=== PATIENT | female | born 1990 | race Caucasian/White ===

== ENCOUNTER 2018-09-10 13:31 | Emergency (ER) | payer SELFPAY ==
[~2018-09-10] VITALS: Ht 167.6 cm; Wt 62.9 kg
[~2018-09-10 13:31] MED LIST: HYDR1CAP18; NITR-53; PHEN95TA25; PREN1TAB12 PO
[2018-09-10 14:07] VITALS: BP 116/61; PULSE 78; RESP 20; Ht 167.6 cm; Wt 62.9 kg
[2018-09-10] MEDS ORDERED: CEPH-443 PO (17:27)
[2018-09-10] MEDS ORDERED: ACET500C5 PO (17:27)
--- NOTE | 2018-09-10 17:49 | ERD ---
ER Documentation Chief Complaint Chief Complaint Complains of vag bleed and 15 weeks HPI 28-year-old male patient with no significant past medical history presents to ED currently is a presents to the ED for vaginal bleeding that occurred yesterday. States that she has had to change for pads. Reports that she has some lower abdominal cramping. Reports that her SAUSAGE MACHINE OPERATOR is Dr. Suggs. States that her last menstruation was on May 23, 2019. Denies any nausea, vomiting, diarrhea, neck stiffness. ROS All systems reviewed and are negative except as per history of present illness. Medications Home Meds Active Scripts Acetaminophen* (Tylophen*) 500 Mg Capsule, 1 CAP PO Q6H PRN for PAIN AND OR ELEVATED TEMP, #20 CAP Prov:JEFF ESPINOZA PA-C 09/10/18 Cephalexin* (Keflex*) 500 Mg Capsule, 500 MG PO QID for 7 Days, CAP Prov:JEFF ESPINOZA PA-C 09/10/18 Reported Medications Vit/Fe Fumarate/Fa ( 1-1 Tablet) 1 Tab Tablet, 1 TAB PO DAILY, #1 01/29/12 Hydrocodone Bit/Acetaminophen (Dolacet 5/500 Capsule) 1 Cap Capsule 10/16/09 Nitrofurantoin Macrocrystal (Nitrofurantoin) 100 Mg Capsule 10/16/09 Phenazopyridine Hcl* (Azo Dine*) 95 Mg Tablet 10/16/09 Allergies Allergies: Coded Allergies: No Known Drug Allergy (Verified Allergy, Mild, 10/16/09) PMhx/Soc Medical and Surgical Hx: pt denies Medical Hx, pt denies Surgical Hx History of Surgery: No Hx Neurological Disorder: No Hx Respiratory Disorders: No Hx Cardiac Disorders: No Hx Miscellaneous Medical Probl: No Hx Alcohol Use: No Hx Substance Use: No Hx Tobacco Use: No Smoking Status: Never smoker FmHx Family History: No diabetes, No coronary disease Physical Exam Vitals Vital Signs Date Temp Pulse Resp B/P (MAP) Pulse Ox O2 O2 Flow FiO2 Time Delivery Rate 09/10/18 98.3 78 20 116/61 100 14:07 (79) Physical Exam Const: Xec-tix-[id number], well-nourished. In no acute distress. Head: Atraumatic, normocephalic Eyes: Normal Conjunctiva without injection. No purulent discharge. ENT: Normal external ear, nose. Moist oropharynx without tonsillar exudates. Non-erythematous pharynx. Uvula midline. No drooling. No trismus. Neck: No cervical midline tenderness. Full range of motion. No meningismus. No cervical lymphadenopathy. No JVD. Resp: Clear to auscultation bilaterally. No wheezing, rhonchi, rales, or crackles. No accessory muscle use. No retractions. Cardio: Regular rate and rhythm. No murmurs, rubs or gallops. Abd: Soft, nontender, non distended. Normal bowel sounds. No palpable masses. No rebound tenderness. No guarding. Negative McBurney's point. Negative psoas sign. Negative obturator sign. Skin: No petechiae or rashes Back: No midline tenderness. No CVA tenderness. Ext: No cyanosis, or edema. Neur: Awake and alert. Normal gait. Normal coordination. Psych: Normal Mood and Affect Results 24 hrs Laboratory Tests Test 09/10/18 15:36 White Blood Count 9.5 10^3/ul Red Blood Count 3.98 10^6/ul Hemoglobin 12.0 g/dl Hematocrit 36.1 % Mean Corpuscular Volume 90.7 fl Mean Corpuscular Hemoglobin 30.2 pg Mean Corpuscular Hemoglobin Concent 33.2 g/dl Red Cell Distribution Width 13.2 % Platelet Count 202 10^3/UL Mean Platelet Volume 10.4 fl Immature Granulocytes % 0.400 % Neutrophils % 74.9 % Lymphocytes % 19.0 % Monocytes % 4.8 % Eosinophils % 0.7 % Basophils % 0.2 % Nucleated Red Blood Cells % 0.0 /100WBC Immature Granulocytes # 0.040 10^3/ul Neutrophils # 7.1 10^3/ul Lymphocytes # 1.8 10^3/ul Monocytes # 0.5 10^3/ul Eosinophils # 0.1 10^3/ul Basophils # 0.0 10^3/ul Nucleated Red Blood Cells # 0.0 10^3/ul Urine Color RED Urine Clarity CLOUDY Urine pH 6.0 Urine Specific [place] 1.017 Urine Ketones NEGATIVE mg/dL Urine Nitrite NEGATIVE mg/dL Urine Bilirubin NEGATIVE mg/dL Urine Urobilinogen 1+ mg/dL Urine Leukocyte Esterase 3+ Leigh/ul Urine Microscopic RBC 3 /HPF Urine Microscopic WBC 13 /HPF Urine Squamous Epithelial Cells MANY /HPF Urine Bacteria FEW /HPF Urine Hemoglobin 3+ mg/dL Urine Glucose NEGATIVE mg/dL Urine Total Protein NEGATIVE mg/dl Beta HCG, Quantitative 00864.0 mIU/ml Procedures/MDM 28-year-old female patient with no significant past medical history presents to ED complaining of vaginal bleeding during her . Patient is afebrile and nontoxic-appearing. An ultrasound, beta-hCG, CBC, type and RH, UA was ordered to evaluate patient. CBC: No evidence of severe infection or anemia Urine: No elevation in nitrites, 3+ leukocyte esterase, 3+ hematuria Rh: A+ No indication for Rhogam at this time. beta Hc IMPRESSION: Single live intrauterine gestation of approximately 15 weeks and 4 days based on ultrasound measurements. Posterior placenta with a large complex fluid collection near the edge of the placenta, suspicious for an area of placental abruption. Close follow-up is recommended. Patient's bleeding symptoms have stabilized while in the department. Discussed with Dr. Suggs, patient's SAUSAGE MACHINE OPERATOR about the possible placenta abruption noted on the ultrasound, who stated that patient can follow-up with him on outpatient basis at his office at 10 AM tomorrow morning. Patient has a 15- week, 4-day IUP. Patient will also be treated for urinary tract infection. Pelvic rest recommended. Low suspicion for symptomatic anemia, ectopic , sepsis, PID, appendicitis, ovarian torsion, tubo-ovarian abscess, surgical abdomen, or other emergent conditions. Patient was educated that there is a risk for threatened . Diagnosis: Bleeding and patient less than 20 weeks gestation Discharge medications: Tylenol, Keflex Patient to follow up with SAUSAGE MACHINE OPERATOR in 2 days for further evaluation and treatment. Patient is to return sooner to the ED for any worsening symptoms. Patient's questions were answered. Patient understood and agreed with discharge plan. Disclaimer: Inadvertent spelling and grammatical errors are likely due to EHR/dictation software use and do not reflect on the overall quality of patient care. Also, please note that the electronic time recorded on this note does not necessarily reflect the actual time of the patient encounter. Departure Diagnosis: Primary Impression: Vaginal bleeding in patient at less than 20 weeks ges... Condition: Stable Patient Instructions: Urinary Tract Infections in Women, Bleeding During Early Referrals: ARIANNA SUGGS MD [facility] YOU HAVE RECEIVED A MEDICAL SCREENING EXAM AND THE RESULTS INDICATE THAT YOU DO NOT HAVE A CONDITION THAT REQUIRES URGENT TREATMENT IN THE EMERGENCY DEPARTMENT. FURTHER EVALUATION AND TREATMENT OF YOUR CONDITION CAN WAIT UNTIL YOU ARE SEEN IN YOUR DOCTORS OFFICE WITHIN THE NEXT 1-2 DAYS. IT IS YOUR RESPONSIBILITY TO MAKE AN APPOINTMENT FOR FOLOW-UP CARE. IF YOU HAVE A PRIMARY DOCTOR --you should call your primary doctor and schedule an appointment IF YOU DO NOT HAVE A PRIMARY DOCTOR YOU CAN CALL OUR PHYSICIAN REFERRAL HOTLINE AT IF YOU CAN NOT AFFORD TO SEE A PHYSICIAN YOU CAN CHOSE FROM THE FOLLOWING [facility] [address] [facility] [facility] [address] [facility] [address] [facility] [address] [facility] [address] [facility] [address] [facility]. [facility] [address] [facility]. [facility] YOU HAVE RECEIVED A MEDICAL SCREENING EXAM AND THE RESULTS INDICATE THAT YOU DO NOT HAVE A CONDITION THAT REQUIRES URGENT TREATMENT IN THE EMERGENCY DEPARTMENT. FURTHER EVALUATION AND TREATMENT OF YOUR CONDITION CAN WAIT UNTIL YOU ARE SEEN IN YOUR DOCTORS OFFICE WITHIN THE NEXT 1-2 DAYS. IT IS YOUR RESPONSIBILITY TO MAKE AN APPOINTMENT FOR FOLOW-UP CARE. IF YOU HAVE A PRIMARY DOCTOR --you should call your primary doctor and schedule and appointment IF YOU DO NOT HAVE A PRIMARY DOCTOR YOU CAN CALL OUR PHYSICIAN REFERRAL HOTLINE AT . IF YOU CAN NOT AFFORD TO SEE A PHYSICIAN YOU CAN CHOSE FROM THE FOLLOWING [facility] INSTITUTIONS: [facility] [address] [place] [address] [facility] [address] [place] [address] [facility] [address] [place] [address] [facility] URGENT CARE/SPECIALTIES SAUSAGE MACHINE OPERATOR [place] [address] [facility] [address] [place] [address] OFFICE FAX , [address] [place], [place] [id number] [place], [place] [address] [place] [address] DR GUSTAFSON, [facility] [address] [place] [address] [address] TELLES, [facility] [address] [place] [address] [facility] [address] [place] [address] [address] [facility] [address] [address] [facility] [address] [facility] [address] [address] [place], [place] [address] [facility] [facility] [address] [address] [facility] [address] [place], [place] [id number] [facility] Hours: 8:00 am - 5:00 pm Additional Instructions: You have a placenta abruoptio please follow up with Dr. Anaya tomorrow at 10am at his office. Return for worsening vaginal bleeding. See the doctor sooner or return here if your condition worsens before your appointment time. JEFF ESPINOZA PA-C Sep 10, 2018 17:46
== END 2018-09-10 17:35 | disposition home or self-care (01) ==
LOC: FTE 13:31
DX: O20.9 Hemorrhage in early pregnancy, unspecified (principal); Z3A.15 15 weeks gestation of pregnancy
CPT/HCPCS: 36415; 76801; 81001; 84702; 85025; 86900; 86901

== ENCOUNTER 2019-02-19 20:48 | Outpatient (CLI) | payer OTHER ==
[~2019-02-19] VITALS: Ht 154.9 cm; Wt 80.1 kg
[~2019-02-19 20:48] MED LIST changes: +ACET500C5 PO; +CEPH-443 PO
[2019-02-19 21:52] VITALS: BP 113/61; PULSE 83; RESP 18; Ht 154.9 cm; Wt 80.1 kg
== END 2019-02-20 01:36 | disposition home or self-care (01) ==
LOC: OBT 20:48 → L-D 20:49 → OBT 02-20 01:36
PROVIDERS: ATTEND Obstetrics & Gynecology
DX: O62.9 Abnormality of forces of labor, unspecified (principal); Z3A.39 39 weeks gestation of pregnancy
CPT/HCPCS: 76816; G0463

== ENCOUNTER 2019-02-27 03:20 | Outpatient (CLI) | payer OTHER ==
[~2019-02-27] VITALS: Ht 154.9 cm; Wt 78.7 kg
[~2019-02-27 03:20] MED LIST changes: -ACET500C5 PO; -CEPH-443 PO; -HYDR1CAP18; -NITR-53; -PHEN95TA25
[2019-02-27 03:45] VITALS: BP 101/71; PULSE 93; RESP 18; Ht 154.9 cm; Wt 78.7 kg
== END 2019-02-27 07:50 | disposition home or self-care (01) ==
LOC: L-D 03:20 → OBT 03:20
PROVIDERS: ATTEND Specialist
DX: O42.913 Preterm premature rupture of membranes, unspecified as to length of time between rupture and onset of labor, third trimester (principal); Z3A.39 39 weeks gestation of pregnancy
CPT/HCPCS: 76815; 84112; Z7500; G0463

== ENCOUNTER 2019-02-27 13:09 | Inpatient (IN) | payer OTHER ==
[~2019-02-27] VITALS: Ht 154.9 cm; Wt 78.7 kg
[2019-02-27 14:01] VITALS: Ht 154.9 cm; Wt 78.7 kg
[2019-02-27 14:02] VITALS: BP 102/67; PULSE 84; RESP 18
[2019-02-27] MEDS ORDERED: CARBOPROST 250 MCG INJ IM PRN (15:30)
[2019-02-27] MEDS ORDERED: MISOPROSTOL 200 MCG TAB PR PRN (15:30)
[2019-02-27] MEDS ORDERED: OXYTOCIN 30 UNITS/LR 500 ML IV SCH ×2 (15:30)
[2019-02-27] MEDS ORDERED: LIDOCAINE 1% (MPF) 30 ML INJ INJ PRN (15:30)
[2019-02-27] MEDS ORDERED: OXYTOCIN 30 UNITS/LR 500 ML IV PRN (15:30)
[2019-02-27] MEDS ORDERED: BUTORPHANOL 2 MG INJ IV PRN ×2 (15:30)
[2019-02-27] MEDS ORDERED: METHYLERGONOVINE 0.2 MG INJ IM PRN (15:30)
[2019-02-27] MEDS: LACTATED RINGER'S 1,000 ML IV SCH (16:26)
[2019-02-28] MEDS ORDERED: ACETAMINOPHEN 325 MG TAB PO PRN (02:00)
[2019-02-28] MEDS ORDERED: LACTATED RINGER'S 1,000 ML IV PRN (02:14)
[2019-02-28] MEDS ORDERED: HYDROmorphONE 0.5 MG/0.5 ML SYG IV PRN ×2 (03:30)
[2019-02-28] MEDS ORDERED: KETOROLAC 30 MG INJ IV PRN (03:30)
[2019-02-28] MEDS ORDERED: ONDANSETRON 4 MG INJ IV PRN ×2 (03:30→09:00)
[2019-02-28] MEDS ORDERED: NALOXONE (0.4 MG/ML) INJ IV PRN (03:30)
[2019-02-28] MEDS ORDERED: DIPHENHYDRAMINE 50 MG INJ IV PRN ×2 (03:30→09:00)
[2019-02-28] MEDS ORDERED: FENTAnyl 2MCG/ML-ROPIV 0.2% 100 ML BAG EPI SCH (03:30)
[2019-02-28] MEDS: LACTATED RINGER'S 1,000 ML IV SCH (04:23)
[2019-02-28] MEDS ORDERED: AMPICILLIN 2 GM/NS (PMX) 100 ML IVPB ONE (07:30)
[2019-02-28] MEDS ORDERED: GENTAMICIN 90 MG in SOD CHLORIDE 0.9% 100 ML IV SCH (08:30)
[2019-02-28] MEDS: OXYTOCIN 30 UNITS/LR 500 ML IV SCH ×2 (08:31→12:47)
[2019-02-28] MEDS ORDERED: OXYTOCIN 30 UNITS/LR 500 ML IV PRN (09:00)
[2019-02-28] MEDS ORDERED: DIPHENHYDRAMINE 25 MG CAP PO PRN (09:00)
[2019-02-28] MEDS ORDERED: DIBUCAINE 1% 30 GM OINT TOP PRN (09:00)
[2019-02-28] MEDS ORDERED: HYDROCODONE/APAP (5/325) TAB PO PRN ×2 (09:00)
[2019-02-28] MEDS ORDERED: MISOPROSTOL 200 MCG TAB PR PRN (09:00)
[2019-02-28] MEDS ORDERED: LANOLIN HPA 1 PKT TOP PRN (09:00)
[2019-02-28] MEDS ORDERED: NA PHOSPHATE/BIPHOS 133 ML ENEMA PR PRN (09:00)
[2019-02-28] MEDS ORDERED: SENNA/DOCUSATE NA (8.6MG/50MG) TAB PO PRN (09:00)
[2019-02-28] MEDS ORDERED: BENZOCAINE 20% 56 ML SPRAY TOP PRN (09:00)
[2019-02-28] MEDS ORDERED: MAGNESIUM HYDROXIDE 30ML CUP PO PRN (09:00)
[2019-02-28] MEDS ORDERED: WITCH HAZEL/GLYCERIN PAD PR PRN (09:00)
[2019-02-28] MEDS ORDERED: CARBOPROST 250 MCG INJ IM PRN (09:00)
[2019-02-28] MEDS ORDERED: ONDANSETRON 4 MG TAB PO PRN (09:00)
[2019-02-28] MEDS: SENNA/DOCUSATE NA (8.6MG/50MG) TAB PO SCH ×2 (11:40→21:55)
[2019-02-28] MEDS: LACTATED RINGER'S 1,000 ML IV* SCH ×2 (11:40→19:45)
[2019-02-28 12:00] VITALS: BP 109/59; PULSE 89; RESP 18
[2019-02-28] MEDS ORDERED: AMPICILLIN 1 GM/NS (PMX) 50 ML IVPB SCH (12:00)
[2019-02-28 15:30] VITALS: BP 100/56; PULSE 80; RESP 20
[2019-02-28 19:45] VITALS: BP 110/66; PULSE 76; RESP 19
[2019-03-01 00:30] VITALS: BP 105/56; PULSE 84; RESP 18
[2019-03-01] MEDS: LACTATED RINGER'S 1,000 ML IV* SCH ×3 (00:46→22:00)
[2019-03-01 04:52] VITALS: BP 96/54; PULSE 70; RESP 19
[2019-03-01] MEDS: IBUPROFEN 600 MG TAB PO SCH ×3 (06:24→18:42)
[2019-03-01 08:00] VITALS: BP 107/65; PULSE 75; RESP 16
[2019-03-01] MEDS: SENNA/DOCUSATE NA (8.6MG/50MG) TAB PO SCH ×2 (10:11→21:59)
[2019-03-01 16:00] VITALS: BP 108/65; PULSE 83; RESP 16
[2019-03-01 20:00] VITALS: BP 105/53; PULSE 87; RESP 19
[2019-03-02] MEDS: IBUPROFEN 600 MG TAB PO SCH ×3 (00:28→11:47)
[2019-03-02] MEDS: LACTATED RINGER'S 1,000 ML IV* SCH ×2 (00:46→08:46)
[2019-03-02 04:28] VITALS: BP 99/57; PULSE 75; RESP 20
[2019-03-02 08:30] VITALS: BP 120/75; PULSE 80
[2019-03-02] MEDS ORDERED: VARICELLA VACCINE LIVE/PF 1,350 UNIT/0.5 ML ML SC* ONE (09:00)
[2019-03-02] MEDS ORDERED: DIPHTH/TET/ACEL PERTUSS (ADULT) 0.5 ML VIAL IM* ONE (09:00)
[2019-03-02] MEDS ORDERED: MEASLES,MUMPS,RUBELLA VACCINE INJ SC* ONE (09:00)
[2019-03-02] MEDS: SENNA/DOCUSATE NA (8.6MG/50MG) TAB PO SCH (09:12)
== END 2019-03-02 13:05 | disposition home or self-care (01) | DRG 807 ==
LOC: L-D 13:09 → OBT 13:09 → L-D 15:10 → OBT 15:10 → L-D 16:14 → PP1 02-28 15:08
PROVIDERS: ADMIT Specialist; ATTEND Specialist
PROC: 10E0XZZ Delivery of Products of Conception, External Approach (ICD-10-PCS; principal; 2019-02-28)
DX: O80 Encounter for full-term uncomplicated delivery (principal); Z37.0 Single live birth; Z3A.39 39 weeks gestation of pregnancy
CPT/HCPCS: 62322; 76818; 84112; 85025; 85610; 85730; 86592; 86850; 86900; 86901; 87340; 90716; G0463; J1580; J2590; J3010; J7120